=== PATIENT | male | born 1965 | race Caucasian/White ===

== ENCOUNTER 2019-06-26 23:31 | Inpatient (IN) ==
[2019-06-26] MEDS ORDERED: NS 1,000 ML IV ONE (23:48)
[2019-06-27] MEDS ORDERED: OFIRMEV 1000 MG/ISOTONIC SOLN 1,000 MG/100 ML BOTTLE IV ONE (00:13)
[2019-06-27 00:21] LABS: AGAP 14; ALBUMIN 3.4 g/dL (3.5-5.0); ALKALINE PHOSPHATASE 124 U/L (32-122); BUN 9 mg/dL (8-22); CALCIUM 8.8 mg/dL (8.8-10.2); CHLORIDE 98 mmol/L (98-107); CK PROFILE 28 U/L (24-204); COSMO 269; CREATININE 0.7 mg/dL (0.7-1.2); ESTIMATED GFR > 60; GLUCOSE 137 mg/dL (70-104); GOT 32 U/L (10-34); GPT 62 U/L (10-44); POTASSIUM 4.4 mmol/L (3.5-5.1); SODIUM 134 mmol/L (136-145); TCO2 22 mmol/L (25-35)
[2019-06-27 00:37] LABS: INR 1.18; PROTIME 15.6 Seconds (11.0-16.0)
[2019-06-27 00:38] LABS: PTT 36.2 Seconds (22.3-41.8)
[2019-06-27 00:39] LABS: INFLUENZA A NEGATIVE (NEGATIVE); INFLUENZA B NEGATIVE (NEGATIVE)
[2019-06-27 00:39] LABS: HEMATOCRIT 33.7 % (42.0-52.0); HEMOGLOBIN 10.9 g/dL (14.0-18.0); MCH 25.9 PG (27-31); MCHC 32.3 g/dL (33-37); MPV 9.8 FL (7.4-10.4); PLT 386 X1000 (130-400); RBC 4.21 XMIL (4.7-6.1); RDW 16.8 % (11.5-14.5); WBC 15.36 X1000 (4.8-10.8)
[2019-06-27 00:40] LABS: BASO# 0.02 X1000 (0.0-0.2); BASO% 0.1 % (0.0-0.8); EOS# 0.19 X1000 (0.0-0.7); EOS% 1.2 % (0.0-10.0); IMM GRAN# 0.05 X1000 (0.0-0.04); IMM GRAN% 0.3 % (0.0-0.5); LYMPH# 0.26 X1000 (1.2-3.4); LYMPH% 1.7 % (20.5-51.1); MONO# 1.33 X1000 (0.11-0.59); MONO% 8.7 % (1.7-9.3); NEUT# 13.51 X1000 (1.4-6.5)
[2019-06-27 00:41] LABS: ANISOCYTOSIS 2+; EOS 1 % (1-10); LYMPHS 2 % (21-51); MONO 5 % (1-9); POIKILOCYTOSIS 1+; SEGS 92 % (42-75)
[2019-06-27 02:08] LABS: URINE SOURCE CLEAN CATCH
[2019-06-27 02:13] LABS: BILIRUBIN URINE NEGATIVE (NEGATIVE); BLOOD URINE NEGATIVE (NEGATIVE); COLOR YELLOW; GLUCOSE URINE NEGATIVE (NEGATIVE); KETONE URINE NEGATIVE (NEGATIVE); LEUKOCYTES URINE NEGATIVE (NEGATIVE); NITRITE URINE NEGATIVE (NEGATIVE); PROTEIN URINE NEGATIVE (NEGATIVE); SP GRAVITY URINE 1.015; TURBIDITY URINE CLEAR (CLEAR); UROBILINOGEN URINE NORMAL (NORMAL)
[2019-06-27 02:14] LABS: UR EPITHELIAL CELLS <10 /HPF (<10); URINE BACTERIA NEGATIVE /HPF; URINE RBC <10 /HPF (<10); URINE WBC <10 /HPF (<10)
[2019-06-27] MEDS ORDERED: VANCOMYCIN IV PER PHARMACY MISC SCH ×3 (03:00→15:45)
[2019-06-27] MEDS: VANCOMYCIN 1 GM/NS 1 GM/250 ML IVPB IV SCH ×2 (04:00→05:00)
--- NOTE | 2019-06-27 06:46 | Diag Imaging Result Doc PS360 ---
CT THORAX W/CONTRAST - 06/27/2019 INDICATION: fever /suppresion immunity COMPARISON: None FINDINGS: There are numerous relatively large ill-defined hypoenhancing hepatic masses. Liver size is normal. There is a hypoenhancing mass in the pancreatic tail measuring 4.1 x 4.1 cm. This contacts the splenic vein. The spleen size is enlarged measuring 14 x 8.3 cm. There is some patchy dependent atelectasis in both lower lobes and at the left hilum. No significant COPD. No significant infiltrates. No adenopathy in the chest. Heart and great vessels are normal. Bones are intact and well mineralized. There are small calcified gallstones in the gallbladder. No gallbladder distention or inflammation. IMPRESSION: 1. Numerous hepatic masses consistent with metastases. 2. Mass in the pancreatic tail adjacent to the splenic hilum concerning for cancer. 3. Calcified gallstones in the gallbladder. This exam was performed using automated exposure control, adjustment of mA or kV according to patient size, and/or use of iterative reconstruction technique Electronically signed by Alex Poole 06/27/2019 6:43 AM
[2019-06-27] MEDS ORDERED: MAXIPIME 2 GM/NS 2 GM/100 ML IVPB IV ONE (07:43)
[2019-06-27] MEDS ORDERED: ZOFRAN IV PRN ×2 (07:46→15:34)
[2019-06-27] MEDS ORDERED: DEMEROL IV PRN (07:47)
[2019-06-27] MEDS ORDERED: NS 1,000 ML IV SCH (08:00)
--- NOTE | 2019-06-27 08:39 | Diag Imaging Result Doc PS360 ---
CHEST-1 VIEW - 06/26/2019 INDICATION: ABD PAIN/COUGH COMPARISON: 04/27/2016 FINDINGS: The lungs are normally expanded and clear. Heart size and mediastinal contours are normal. No pneumothorax or pleural effusion. IMPRESSION: Negative exam. Electronically signed by Alex Poole 06/27/2019 8:37 AM
[2019-06-27] MEDS ORDERED: TYLENOL PO PRN (12:11)
--- NOTE | 2019-06-27 12:44 | HISTORY AND PHYSICAL ---
PRIMARY CARE PROVIDER: None. Does see Dr. Perla in [place]. CHIEF COMPLAINT: Burning up and shivering. HISTORY OF PRESENT ILLNESS: Mr. Mandujano is a 54-year-old male with a past medical history of hypertension, multiple sclerosis, chronic neck and back pain, recent thyroid issues going on for 1 month after being on Lemtrada medication, CVA in 2016. He reports nausea and vomiting for about a week and a clear productive cough that has been ongoing for 1 month. He denies any abdominal pain, any sick contacts. No chest pain. No shortness of breath. No diarrhea. No constipation. No change in bowel habits. Has not really noticed any weight loss. No night sweats up until now. Workup in the ED showed he had a fever of 102.7. He was tachycardic, tachypneic, with a white count of 15, elevated ANC and negative plasma lactate, negative urinalysis, negative for flu, negative for strep. Chest CT was a negative exam. They did send him for a chest CT that showed numerous hepatic masses consistent with metastasis. The mass in the pancreatic tail adjacent to the splenic hilum concerning for cancer and calcified gallstones in the gallbladder. Blood cultures were obtained. He was initiated on broad- spectrum antibiotics with vancomycin and cefepime and was given IV Tylenol. With a final results of his CT scan, we will more than likely be transferring him over to [facility] for Oncology consult so they can get together a treatment plan. The patient is not up-to-date on any cancer screenings. His last colonoscopy was over 21 years ago. He does not follow up with regular doctor except for specialists in [place]. PAST MEDICAL HISTORY: See HPI. PAST SURGICAL HISTORY: Hernia repair, colonoscopy over 21 years ago. FAMILY HISTORY: Notable for lung and prostate cancer. No heart disease, diabetes, or prior stroke or MS. SOCIAL HISTORY: He continues to smoke about half a pack of cigarettes a day. He did quit alcohol. Prior to this back in 2016, he was 2 to 3 beers a day and a six-pack on the weekends, as the daughter at bedside did verify that he has quit drinking. No illicit drug use. REVIEW OF SYSTEMS: Twelve-point review of systems completely negative except for those mentioned in HPI. PHYSICAL EXAMINATION: VITAL SIGNS: Temperature is 97.8 degrees, heart rate 83, respirations 16, blood pressure 137/74, O2 is 98% on room air. GENERAL: Mr. Mandujano is a 54-year-old gentleman who is lying on the bed, completely covered up from head to toe. He did not awaken to voice; however, he did awaken to touch. He was in no acute distress, completely appropriate once awakened. HEENT: Atraumatic, normocephalic. PERRL. NECK: Supple. Trachea midline. CARDIOVASCULAR: S1, S2 appreciated. No murmurs, gallops, or rubs noted. RESPIRATORY: Lung sounds clear bilaterally. GASTROINTESTINAL: Soft, nontender to palpation in all 4 quadrants. Positive bowel sounds in 4 quadrants. EXTREMITIES: No lower extremity edema. NEUROLOGIC: No focal deficits noted. ASSESSMENT AND PLAN: 1. Nausea and vomiting that has seemed to resolve. 2. Pneumonia seen on CT scan. Elvated WBC, febrile 102, He was placed on broad- spectrum antibiotics. 3. Numerous hepatic masses consistent with metastasis and a mass in the pancreatic tail adjacent to the splenic hilum concerning for cancer. The patient will be transferred to [facility] for Oncology consultation and further workup and evaluation. Pending CT abdomen 4. Recent thyroid issues. Most likely hypothyroid. We will check his TSH, free T4 and T3. He could not tell me what type of issues he was having except it was caused from the medication he was on. He could not tell me if it was hyper or hypo. 5. Multiple sclerosis. We will continue his home medications. 6. Hypertension. 7. Chronic neck and back pain. 8. Cerebrovascular accident history, aware. 9. Tobacco use ongoing will need continued education. 9. Further recommendations to follow physician evaluation, laboratory and diagnostic data. Dictated by EDWIN Cifuentes for Sebastián Brambila MD cc: Sebastián Brambila MD [facility]
--- NOTE | 2019-06-27 14:10 | GENERAL SURGERY CONSULTATION ---
DATE: 06/27/2019 REASON FOR CONSULTATION/REFERRING PHYSICIAN: I have been asked to see him by Dr. Brambila regarding his fever and possible gallbladder disease. HISTORY OF PRESENT ILLNESS: This is a 54-year-old gentleman who has not a very good historian, but reports a 4 to 5-day history of early satiety, poor appetite, and nausea. I think yesterday, he developed fever. He really does not complain of significant abdominal tenderness or pain. Denies any diarrhea. He has a history of MS, and followed by Dr. Perla for that. His workup has included a chest CT showing multiple hepatic metastasis and a mass in the tail of his pancreas. This was all previously undiagnosed. PAST SURGICAL HISTORY: Includes a hernia repair and a colonoscopy in the past. FAMILY HISTORY: Pertinent for lung and prostate cancer. SOCIAL HISTORY: He smokes a pack a day. He denies alcohol use. No illicit drug use. REVIEW OF SYSTEMS: Pertinent for the weakness, the nausea and vomiting, and the fever, otherwise negative on the 10 subsystems. PHYSICAL EXAMINATION: Vital Signs: His temperature is 100.3 degrees, heart rate 95, blood pressure 128/78. Neck: No cervical adenopathy. Lungs: Bilateral breath sounds. Heart: Regular rate and rhythm. Abdomen: Soft. He is mildly tender in the right subcostal region, more laterally than expected for his gallbladder. Extremities: He also points to some pain in his right shoulder area. Neurologic: He does answer questions appropriately. IMAGING AND LABORATORY DATA: White count is noted to be 15,400, hemoglobin 10.9, hematocrit 33, he has a left shift. Alkaline phosphatase 124, total bilirubin 0.8. His CT scan is reviewed. The mets and the pancreatic mass is noted. His gallbladder is not particularly inflamed appearing. He does has some calcified gallstones. ASSESSMENT: This could represent possibly gallbladder disease. I think it would be helpful to get an ultrasound of the gallbladder. We will follow along and recheck his liver enzymes and white count. He may ultimately come to cholecystectomy. I have discussed this with him. cc: Yon Yin MD
--- NOTE | 2019-06-27 14:57 | Diag Imaging Result Doc PS360 ---
CT ABD/PELVIS W/PO AND IV CON - 06/27/2019 INDICATION: weight loss, cachexia, dysphagia COMPARISON: Chest CT from earlier today FINDINGS: There is some mild atelectasis in the lung bases but no infiltrates. There is a suspicious hypoenhancing mass in the pancreatic tail. This measures about 3.7 x 3.4 cm. There are numerous hypoenhancing masses throughout the liver compatible with metastases. The spleen itself appears grossly normal. The gallbladder is completely collapsed and there are probably some small gallstones inside. No biliary dilation. The adrenals and kidneys are normal. No bowel obstruction or inflammation. Urinary bladder, prostate, and rectum are normal. There are moderate degenerative changes of the spine. No acute or suspicious bony lesion. IMPRESSION: Suspicious mass in the pancreatic tail with numerous hepatic metastases. Most likely metastatic pancreatic cancer. This exam was performed using automated exposure control, adjustment of mA or kV according to patient size, and/or use of iterative reconstruction technique Electronically signed by Alex Poole 06/27/2019 2:55 PM
[2019-06-27] MEDS ORDERED: FLAGYL 500 MG/NS 500 MG/100 ML IVPB IV SCH (15:15)
[2019-06-27] MEDS ORDERED: VANCOMYCIN 2,000 MG in NS 500 ML IV SCH ×4 (16:00)
--- NOTE | 2019-06-27 16:32 | EKG Report ---
Test Performed on : 06/26/2019 11:31:06 PM Test Reason : ED Blood Pressure : / mmHG Vent. Rate : 103 BPM Atrial Rate : 103 BPM P-R Int : 154 ms QRS Dur : 090 ms QT Int : 328 ms P-R-T Axes : 017 000 039 degrees QTc Int : 429 ms Sinus tachycardia. Possible Anterior infarct , age undetermined Abnormal ECG When compared with ECG of 27-APR-2016 21:21, Borderline criteria for Anterior infarct are now present ST no longer depressed in Anterior leads T wave inversion now evident in Anterior leads Unconfirmed Result
--- NOTE | 2019-06-27 16:42 | HISTORY AND PHYSICAL ---
ADDENDUM: This is an unfortunate 54-year-old gentleman who came in for evaluation. He had cough, shortness of breath, and fever of 102.2. He was admitted for pneumonia, but the CT showed numerous masses in his liver and likely primary pancreatic mass. I do not think that information was available initially. In any case, he does report a 15 pounds weight loss in the last three months. He has not been eating and drinking well. He has some right upper quadrant abdominal pain intermittently and in any case, he was admitted primarily for pneumonia. CT was read as atelectasis. I think he has got infiltrates. He has got a white count. He has got fever, so I am going to treat him for pneumonia. I do not think his fevers are from the cancer. It is certainly possible but unlikely. He has hyperthyroidism, which has been elaborated by his medication for his MS. In any case, PROBLEM LIST: 1. Pneumonia. We will continue antibiotics, pulmonary toilet. 2. Likely metastatic pancreatic cancer. We sent off tumor markers. I have requested a CT guided liver biopsy. 3. Symptomatic cholelithiasis. I have asked for a General Surgery consult and we will continue to monitor. I think I will add Flagyl to his regimen just in case this is related to his gallbladder for anaerobic coverage, but that is at the discretion of primary team because he may need surgery and it is unlikely that they will complete a biopsy here at the [facility]. We are going to send him to the [facility] for further management. cc: Sebastián Brambila MD
[2019-06-27] MEDS: NS 1,000 ML IV SCH (16:47)
[2019-06-27] MEDS: TAPAZOLE PO SCH ×2 (16:47→20:24)
[2019-06-27] MEDS: FLAGYL 500 MG/NS 500 MG/100 ML IVPB IV SCH ×2 (16:47→22:40)
--- NOTE | 2019-06-27 16:52 | Diag Imaging Result Doc PS360 ---
US GB < RUQ (LIMITED) - 06/27/2019 INDICATION: ruq pain, fever TECHNIQUE: COMPARISON: CT from earlier today FINDINGS: There are numerous small shadowing stones in the gallbladder. These fill over half of the gallbladder lumen. No gallbladder distention or wall thickening. No biliary dilation. There are numerous masses in the liver. Common bile duct measures 2 mm. Pancreatic tail is obscured. The right kidney is normal. Aorta, IVC, and main portal vein are patent. IMPRESSION: 1. Numerous stones in the gallbladder. 2. Numerous masses in the liver. Electronically signed by Alex Poole 06/27/2019 4:50 PM
[2019-06-27] MEDS ORDERED: VANCOMYCIN 1,850 MG in NS 500 ML IV SCH (17:00)
[2019-06-27] MEDS: VANCOMYCIN 1,850 MG in NS 500 ML IV SCH (17:47)
[2019-06-27] MEDS ORDERED: CALMOSEPTINE OINTMENT TOP PRN (18:02)
[2019-06-27] MEDS ORDERED: MAXIPIME 1 GM in NS 50 ML IV SCH (20:00)
[2019-06-27] MEDS: PATIENT'S OWN MED PO SCH (20:29)
[2019-06-27] MEDS: MAXIPIME 1 GM in NS 50 ML IV SCH (23:36)
[2019-06-28] MEDS ORDERED: VANCOMYCIN IV PER PHARMACY MISC SCH (04:00)
[2019-06-28] MEDS: FLAGYL 500 MG/NS 500 MG/100 ML IVPB IV SCH ×3 (04:29→15:11)
[2019-06-28] MEDS: VANCOMYCIN 1,850 MG in NS 500 ML IV SCH ×2 (05:36→18:58)
[2019-06-28] MEDS: PEPCID PO SCH (06:28)
[2019-06-28 07:43] LABS: BASO# 0.03 X1000 (0.0-0.2); BASO% 0.3 % (0.0-0.8); EOS# 0.19 X1000 (0.0-0.7); EOS% 1.8 % (0.0-10.0); HEMATOCRIT 29.9 % (42.0-52.0); HEMOGLOBIN 9.5 g/dL (14.0-18.0); IMM GRAN# 0.03 X1000 (0.0-0.04); IMM GRAN% 0.3 % (0.0-0.5); LYMPH# 0.38 X1000 (1.2-3.4); LYMPH% 3.7 % (20.5-51.1); MCH 25.7 PG (27-31); MCHC 31.8 g/dL (33-37); MCV 80.8 FL (81-99); MONO# 0.88 X1000 (0.11-0.59); MONO% 8.5 % (1.7-9.3); MPV 9.5 FL (7.4-10.4); NEUT# 8.86 X1000 (1.4-6.5); NEUT% 85.4 % (42.2-75.2); PLT 388 X1000 (130-400); RDW 16.7 % (11.5-14.5); WBC 10.37 X1000 (4.8-10.8)
[2019-06-28 08:05] LABS: ANISOCYTOSIS 1+; BANDS 4 % (0-1); EOS 2 % (1-10); HYPOCHROM 1+; LARGE PLATELETS 1+; LYMPHS 2 % (21-51); MONO 4 % (1-9); SEGS 84 % (42-75)
[2019-06-28 08:13] LABS: FREE T4 0.85 ng/dL (0.93-1.70); TSH 1.24 uIUmL (0.27-4.20)
[2019-06-28 08:25] LABS: AGAP 12; ALB/GLOB RATIO 0.8; ALBUMIN 2.8 g/dL (3.5-5.0); ALKALINE PHOSPHATASE 104 U/L (32-122); BUN 8 mg/dL (8-22); CALCIUM 8.6 mg/dL (8.8-10.2); CHLORIDE 98 mmol/L (98-107); COSMO 264; CREATININE 0.8 mg/dL (0.7-1.2); ESTIMATED GFR > 60; GLUCOSE 111 mg/dL (70-104); GOT 22 U/L (10-34); GPT 43 U/L (10-44); POTASSIUM 3.7 mmol/L (3.5-5.1); SODIUM 132 mmol/L (136-145); TCO2 22 mmol/L (25-35); TOTAL BILIRUBIN 0.59 mg/dL (0.20-1.00); TOTAL PROTEIN 6.3 g/dL (6.3-8.3)
--- NOTE | 2019-06-28 10:06 | GENERAL SURGERY PROGRESS NOTE ---
DATE: 06/28/2019 SUBJECTIVE: Mr. Mandujano seems well. His T-max is 100.5 degrees this morning early. Now, he is afebrile. Heart rate 87, blood pressure 131/74. He has taken liquid satisfactorily. His abdomen is not tender. His white count is down to 10,400. I think he is improved with antibiotic therapy. I do think he has cholecystitis. I do think he will come to cholecystectomy, but it is not urgent. We will consider him over the next 2 days for a cholecystectomy if all are in agreement. cc: Yon Yin MD
[2019-06-28 10:30] LABS: HEPATITIS PROFILE ACUTE SEE COMMENTS
[2019-06-28] MEDS: NS 1,000 ML IV SCH ×2 (10:39→15:10)
[2019-06-28] MEDS: FLOMAX PO SCH (10:40)
[2019-06-28] MEDS: TAPAZOLE PO SCH ×3 (10:42→22:22)
[2019-06-28] MEDS: MAXIPIME 1 GM in NS 50 ML IV SCH ×2 (10:42→22:22)
--- NOTE | 2019-06-28 13:21 | PROGRESS NOTE ---
DATE: 06/28/2019 INTERVAL HISTORY: Patient with no further nausea, vomiting. A little bit of nonproductive cough, but no dyspnea. No new complaints. Still some intermittent fevers although they have trended down from admission. REVIEW OF SYSTEMS: Twelve point review of systems negative except as per interval history. LABORATORY DATA: WBC 10.3, hemoglobin 9.5, hematocrit 29.9, platelets 388,000. Sodium 132, potassium 3.7, BUN 8, creatinine 0.8, glucose 111, bilirubin 0.5, AST 22, ALT 43, alkaline phosphatase 104. Urinalysis unremarkable. Flu negative. Strep negative. Hepatitis panel negative. VITAL SIGNS: T-max 100.5 degrees, pulse 82, respirations 14, blood pressure 142/105, O2 saturation 95% on room air. PHYSICAL EXAMINATION: General: No acute distress. Vitals: As above. HEENT: Normocephalic, atraumatic. Moist mucous membranes. Cardiovascular: Regular rate and rhythm. No murmurs noted. Pulmonary: Occasional faint right mid lung crackles. Otherwise clear to auscultation. Abdomen: Soft. No tenderness currently. Negative Barclay sign. Bowel sounds positive. Extremities: Peripheral pulses intact. No clubbing, cyanosis. Neurologic: Cranial nerves grossly intact. No focal deficits. Psychiatric: Normal mood and affect. Asleep but easily arousable. Oriented x3. Cooperative. Skin: No new appearing rashes or lesions noted. No jaundice. ASSESSMENT AND PLAN: 1. Sepsis, likely pneumonia. CT chest read as patchy dependent atelectasis in both lower lobes, but when I reviewed the images it looks pretty consistent with pneumonia to me, especially on transverse images of the chest CT slides 57 and 67, right mid to lower lobe. Suspect pneumonia. On antibiotics with vancomycin and cefepime. Flagyl also added for presumably for concerns for possible cholecystitis. 2. Likely pancreatic cancer with numerous liver metastasis. The patient is relatively asymptomatic at this time. Surgery considering taking his gallbladder out. If they do then they could potentially do liver biopsies at the same time. Otherwise, we will plan on getting Radiology to perform a biopsy likely tomorrow. 3. Hypertension. Blood pressure only minimally elevated off medication. We will plan on continuing to hold medication. 4. Chronic pain. Pain reasonably controlled currently without much requirement for pain medicine but will add additional pain medicine if need be. 5. Nausea, vomiting, resolved. 6. Tobacco abuse. Patient has been counseled on cessation. 7. Multiple sclerosis. Not currently with any flares or notable deficits. [facility]ITAL[facility]ee[facility]
[2019-06-28] MEDS: PATIENT'S OWN MED PO SCH ×2 (14:10→22:23)
[2019-06-29] MEDS: TYLENOL PO PRN ×2 (00:10→19:42)
[2019-06-29] MEDS: NS 1,000 ML IV SCH ×4 (00:46→18:02)
[2019-06-29] MEDS: FLAGYL 500 MG/NS 500 MG/100 ML IVPB IV SCH ×4 (03:06→20:46)
[2019-06-29] MEDS: VANCOMYCIN 1,850 MG in NS 500 ML IV SCH ×2 (05:53→18:02)
[2019-06-29] MEDS: PEPCID PO SCH (06:07)
[2019-06-29] MEDS: PATIENT'S OWN MED PO SCH ×2 (08:09→20:46)
[2019-06-29] MEDS: FLOMAX PO SCH (10:48)
[2019-06-29] MEDS: TAPAZOLE PO SCH ×3 (10:48→20:45)
--- NOTE | 2019-06-29 10:50 | Diag Imaging Result Doc PS360 ---
EXAM: CT GUIDED BX LIVER HISTORY: hepatic mass TECHNIQUE: CT-guided liver biopsy COMPARISON: CT from 06/27/2019 FINDINGS: Prior to the procedure I discussed the risk and benefits with the patient. Primary risks include bleeding, infection, liver injury, and lung injury. Questions were answered. The patient then gave consent. CT was used to localize the subtle hypodense liver lesions on the noncontrasted exam. Lateral right abdomen was cleaned and draped in the normal fashion. Lidocaine was used as a local anesthetic. Needle was advanced into the right lobe of the liver on the first pass without difficulty. Multiple biopsy specimens obtained with a Temno needle. These biopsy specimens were sent to pathology for analysis. The needle was withdrawn. The patient had no complaints during or following the procedure. IMPRESSION: CT-guided liver biopsy. Electronically signed by Bert Whitley 06/29/2019 10:47 AM
[2019-06-29] MEDS: MAXIPIME 1 GM in NS 50 ML IV SCH ×2 (11:54→22:43)
--- NOTE | 2019-06-29 17:33 | PROGRESS NOTE ---
DATE: 06/29/2019 INTERVAL HISTORY: No acute events overnight. He continues to spike fever episodes. SUBJECTIVE: Mr. Mandujano is feeling still weak and not good. He denies any chest pain or shortness of breath. He is occasionally coughing. He denies any nausea, vomiting. He says his liver biopsy went well. I discussed with him about the CT scan findings and suspicion for cancer. He appears depressed to learn it and understanding it. VITAL SIGNS: Temperature of 100 degrees, pulse 87 respiratory rate 16, blood pressure 150/80, saturating 100% on room air. PHYSICAL EXAMINATION: General: Not in acute distress. HEENT: Oral cavity is moist. Lungs: Air entry bilaterally equal. No wheeze, rhonchi, crackles. Cardiovascular: S1, S2 normal. No murmur, rub, or gallop. Abdomen: Soft. Right upper quadrant tenderness. Active bowel sounds. Extremities: No lower extremity edema. Neurologic: He is alert and oriented x3. LABS: There is no CBC or BMP today, for which I have ordered tomorrow. His CA-19-9 antigen is elevated significantly. Hepatitis panel was unremarkable. MICROBIOLOGY: No positive microbiological data, except 1 of the 2 blood cultures which was coagulase-negative Staphylococcus. IMAGING: Liver biopsy was performed today. ASSESSMENT AND PLAN: 1. Sepsis due to bilateral but predominantly right lower lobe pneumonia and presumably from acute versus chronic cholecystitis. Blood culture has remained clear. I will continue him on intravenous vancomycin, intravenous cefepime, and intravenous metronidazole considering he continues to spike fever. His persistent fever could be in the setting of hepatic metastasis. On review of his CT scan, he does have a right lower lobe infiltrate. However, my suspicion is cholecystitis contributing to his current abdominal pain rather than pneumonia. Surgical team on board and I am anticipating cholecystectomy soon. 2. Pancreatic mass with multiple liver lesions suspicious of metastatic pancreatic cancer. He underwent liver biopsy on June 29. Follow up with biopsy report. He will need an Oncology team evaluation. Continue meperidine as needed for abdominal pain. 3. History of multiple sclerosis and Lemtrada induced thyroid dysfunction. I will continue his methimazole. TSH within acceptable range, so thyrotoxicosis contributing to his fever is less likely at the moment. 4. Others. Start patient on enoxaparin for DVT prophylaxis considering suspected pancreatic malignancy; continue tamsulosin for BPH. 5. Disposition. I plan to monitor the patient on medical floor. Plan of care discussed with him. All of his questions have been answered. I am awaiting surgical plan about cholecystectomy before contemplating eventual discharge and outpatient Oncology followup. cc: Tyler Schultz MD
[2019-06-29] MEDS ORDERED: LOVENOX SUBQ SCH (18:00)
--- NOTE | 2019-06-29 19:29 | HEMO/ONC CONSULTATION ---
DATE: 06/29/2019 REQUESTING PHYSICIAN: Hospitalist Service. REASON FOR CONSULTATION: Pancreatic mass and metastatic liver lesion. HISTORY OF PRESENT ILLNESS: Mr. Mandujano is a male who presented to the emergency department complaining of a productive cough. During scanning in regards to his pulmonary issues, he was found to have numerous hepatic masses consistent with metastasis as well as the mass of his pancreatic tail. He is now status post CT-guided liver biopsy. He also has an elevated CA-19-9. PAST MEDICAL HISTORY: 1. Positive for hypertension, multiple sclerosis treated with Lemtrada. 2. Chronic neck and back pain. 3. CVA in 2016. PAST SURGICAL HISTORY: Positive for hernia repair, colonoscopy over 21 years ago. FAMILY HISTORY: Positive for lung and prostate cancer. SOCIAL HISTORY: Patient smokes about a half pack of cigarettes per day. He no longer drinks alcohol, but previously he was a daily beer drinker. He denies any illicit drug use. REVIEW OF SYSTEMS: A 12-point review of systems has been completed and is negative, except for as expressed in the HPI. PHYSICAL EXAMINATION: Vital Signs: Temperature 99.8 degrees, heart rate 85, respirations 18, blood pressure 138/77, O2 saturation 97% on room air. General: male lying in his hospital bed. He is in no acute distress currently. Head: Normocephalic, atraumatic. Eyes: Pupils equal, round, reactive. Ears, nose, throat, neck, and mouth: Oral mucosa appears to be normal. Cardiovascular: S1, S2 heard. Respiratory: Coarse breath sounds with some scant wheezing. Abdomen: Soft with normoactive bowel sounds. Musculoskeletal: No bony abnormalities noted. Extremities: No edema. Neurologic: Patient is alert and oriented. LABORATORY AND STUDIES: There are no new labs for today, but white blood cells at last check were 10.37, hemoglobin 9.5, platelet count 388,000. CT of chest and CT of the abdomen and pelvis as per above, with pancreatic mass as well as numerous hepatic metastatic lesions. ASSESSMENT AND PLAN: 1. Metastatic liver disease with pancreatic mass concerning for metastatic pancreatic cancer. Liver biopsy done earlier today is currently pending. We discussed that we will need to get final pathology back to confirm diagnosis. We can then see him and discuss treatment options. He does not appear to be resectable and the plan would be to proceed with chemotherapy as an outpatient. 2. Sepsis with pneumonia. He will continue his IV antibiotics. Management per the primary team. He seems to be improving slowly. 3. Hypertension. Again, management per the primary team. 4. Chronic pain. Continue current pain management. 5. Multiple sclerosis. This has previously been treated with Lemtrada by Dr. Perla. Thank you for consulting us on Mr. Mandujano. We will continue to follow along and adjust our treatment plan per his hospital course. Dictated by GARRET Hamilton for Diamond Callahan MD cc: Diamond Callahan MD I have seen and examined the patient and the above note reflects my history, physical exam, assessment and plan. Diamond Callahan MD [facility]PITALDeejay
--- NOTE | 2019-06-29 19:54 | GENERAL SURGERY PROGRESS NOTE ---
DATE: 06/29/2019 Mr. Mandujano had a temperature of 100 degrees. Hemodynamics are satisfactory. White count is down to 10,400 yesterday. 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 We will plan to proceed with a laparoscopic cholecystectomy tomorrow the . I have discussed the plan with him. He understands and agrees. cc: Yon Yin MD
[2019-06-29] MEDS: LOVENOX SUBQ SCH (20:45)
[2019-06-30] MEDS: FLAGYL 500 MG/NS 500 MG/100 ML IVPB IV SCH ×4 (03:20→20:27)
[2019-06-30] MEDS: PEPCID PO SCH (06:17)
[2019-06-30] MEDS: VANCOMYCIN 1,850 MG in NS 500 ML IV SCH ×2 (06:18→18:12)
[2019-06-30 07:44] LABS: BASO# 0.02 X1000 (0.0-0.2); BASO% 0.2 % (0.0-0.8); EOS# 0.04 X1000 (0.0-0.7); EOS% 0.4 % (0.0-10.0); HEMATOCRIT 28.2 % (42.0-52.0); IMM GRAN# 0.04 X1000 (0.0-0.04); IMM GRAN% 0.4 % (0.0-0.5); LYMPH# 0.46 X1000 (1.2-3.4); LYMPH% 4.3 % (20.5-51.1); MCH 25.7 PG (27-31); MCHC 31.9 g/dL (33-37); MCV 80.6 FL (81-99); MONO# 0.89 X1000 (0.11-0.59); MONO% 8.3 % (1.7-9.3); MPV 9.4 FL (7.4-10.4); NEUT# 9.24 X1000 (1.4-6.5); NEUT% 86.4 % (42.2-75.2); PLT 372 X1000 (130-400); RDW 16.6 % (11.5-14.5); WBC 10.69 X1000 (4.8-10.8)
[2019-06-30 08:02] LABS: AGAP 13; ALB/GLOB RATIO 0.7; ALBUMIN 2.3 g/dL (3.5-5.0); ALKALINE PHOSPHATASE 93 U/L (32-122); BUN 6 mg/dL (8-22); CHLORIDE 99 mmol/L (98-107); COSMO 265; CREATININE 0.7 mg/dL (0.7-1.2); ESTIMATED GFR > 60; GLUCOSE 113 mg/dL (70-104); GOT 20 U/L (10-34); GPT 33 U/L (10-44); POTASSIUM 3.6 mmol/L (3.5-5.1); SODIUM 133 mmol/L (136-145); TCO2 21 mmol/L (25-35); TOTAL BILIRUBIN 0.62 mg/dL (0.20-1.00); TOTAL PROTEIN 5.7 g/dL (6.3-8.3)
[2019-06-30] MEDS: TAPAZOLE PO SCH ×3 (09:45→20:29)
[2019-06-30] MEDS: FLOMAX PO SCH (09:45)
[2019-06-30] MEDS ORDERED: SENSORCAINE-MPF 0.5%/EPI 1:200,000 ONE (11:04)
[2019-06-30] MEDS ORDERED: SODIUM CHLORIDE 0.9% ONE (11:04)
[2019-06-30] MEDS ORDERED: LR 1,000 ML ONE (11:04)
[2019-06-30] MEDS ORDERED: ZEMURON ONE (11:35)
[2019-06-30] MEDS ORDERED: XYLOCAINE-MPF 2% ONE ×2 (11:35→15:47)
[2019-06-30] MEDS ORDERED: DIPRIVAN 1% ONE ×3 (11:35→15:56)
--- NOTE | 2019-06-30 12:41 | OPERATIVE NOTE ---
PROCEDURE DATE: 06/30/2019 PROCEDURE PERFORMED: Laparoscopic cholecystectomy with operative cholangiogram and biopsy of the right lobe of the liver. SURGEON: Yon Yin MD. STUDENT LOAN COUNSELOR: Hu Weems PREOPERATIVE DIAGNOSIS: Chronic calculous cholecystitis and liver metastases. POSTOPERATIVE DIAGNOSIS: Chronic calculous cholecystitis and liver metastases with choledocholithiasis. FINDINGS: Cholangiogram revealed numerous stones within the common bile duct, and also there were numerous metastases noted in the liver, both lobes. DESCRIPTION OF PROCEDURE: Satisfactory general endotracheal anesthesia was achieved. Abdomen is prepped and draped in a sterile fashion. We anesthetized skin at the base of the umbilicus, incised the skin, dissected down the fascia, scored the fascia, introduced 11 trocar Optiview technique. We insufflated through this trocar. Under direct visualization, we introduced a 5 trocar midclavicular line, a 5 trocar near the anterior axillary line, an 11 mm trocar in the midepigastrium. We placed the patient in reverse Trendelenburg and turned him to the left. We identified some multiple metastases within the liver. We also identified some old clot in the anterior abdominal wall with the needle biopsy had been done. There was no bleeding from the liver spot where the needle had entered the liver. We grasped the fundus of the gallbladder, reflected it cephalad. We began dissection of the triangle of Calot. We identified the cystic duct. We obtained a critical view. We clipped the cystic duct near the junction of the gallbladder, incised the cystic duct. We introduced a Agnes catheter, shot the cholangiogram. The findings above were noted. We removed the cholangiogram catheter, clipped the cystic duct on the opposite side of the cystic ductotomy x3 and then transected the cystic duct. Cystic artery is identified, clipped proximally x2, distally x1, and divided. Another branch was clipped proximally x2 and divided. We then used the cautery spatula to dissect the gallbladder away from the liver. After complete separation of gallbladder from liver, we changed the videolaparoscope to the mid epigastric trocar, introduced a claw forceps and delivered the gallbladder through the subumbilical incision. We enlarged the fascial incision enough to deliver the gallbladder. We replaced the 11 trocar at the umbilicus. We looked back and identified what appeared to be a metastasis at the edge of the right lobe of the liver. We did a biopsy of it with the biopsy forceps. Hemostasis was satisfactory. We then used a Nelson-Adilson wound closure for the epigastric trocar site. We desufflated and removed our other trocars. We closed the fascia at the umbilicus with 2-0 Polysorb fascial stitches under direct visualization. We then closed the skin at each incision with 4-0 Polysorb subcuticular stitches. Sterile OpSites were applied. He tolerated it well and was sent to the recovery room in satisfactory condition. cc: Yon Yin MD
[2019-06-30] MEDS: PATIENT'S OWN MED PO SCH ×2 (13:23→20:30)
[2019-06-30] MEDS: MAXIPIME 1 GM in NS 50 ML IV SCH (13:44)
--- NOTE | 2019-06-30 14:43 | Diag Imaging Result Doc PS360 ---
OPERATIVE CHOLANGIOGRAM - 06/30/2019 INDICATION: CHRONIC CHOLECYSTITIS TECHNIQUE: The exam was performed by the patient's surgeon. Total fluoroscopy time was 31 seconds. Two images were obtained. COMPARISON: None FINDINGS: Contrast was infused into the cystic duct. The common bile duct is moderately dilated. There are numerous obstructing stones in the mid and distal common bile duct. IMPRESSION: Numerous obstructing stones in the common bile duct. Electronically signed by Alex Poole 06/30/2019 2:41 PM
[2019-06-30] MEDS ORDERED: ROBINUL ONE (15:47)
[2019-06-30] MEDS ORDERED: NEO-SYNEPHRINE ONE (15:53)
[2019-06-30] MEDS ORDERED: SODIUM CHLORIDE 0.9% 0 ML ONE (15:53)
[2019-06-30] MEDS ORDERED: FENTANYL ONE (16:23)
[2019-06-30] MEDS ORDERED: INDOCIN ONE (17:01)
[2019-06-30] MEDS ORDERED: ZOFRAN ONE (17:14)
--- NOTE | 2019-06-30 17:42 | ENDOSCOPY OPERATIVE NOTE ---
[facility] ENDOSCOPY OPERATIVE NOTE , ERCP PROCEDURE REPORT EXAM DATE: 06/30/2019 PATIENT NAME: Lacho Mandujano MR #: [id number] BIRTHDATE: 1965 ATTENDING: Adebayo Vo MD STATUS: inpatient [employer] SALES MANAGER: Earline Miguel and Luda Farah INDICATIONS: The patient is a 54 yr old male here for an ERCP due to established bile duct stone(s). PROCEDURE PERFORMED: ERCP with sphincterotomy/papillotomy ERCP with removal of calculus/calculi MEDICATIONS: Per Anesthesia CONSENT: The patient understands the risks and benefits of the procedure and understands that these r isks include, but are not limited to: sedation, allergic reaction, infection, perforation and/or bleeding. Alternative means of evaluation and treatment include, among others: physical exam, x-rays, and/or surgical intervention. The patient elects to proceed with this endoscopic procedure. HISTORY AND PHYSICAL: 06/30/2019 DESCRIPTION OF PROCEDURE: During intra-op preparation period all mechanical and medical equipment was checked for proper function. Hand hygiene and appropriate measures for infection prevention was taken. After the risks, benefits and alternatives of the procedure were thoroughly explained, Informed was verified, confirmed and timeout was successfully executed by the treatment team. With the patient in left semi-prone position, medications were admini stered intravenously.The [id number] ([id number]) was passed from the mouth into the esophagus and further advanc ed from the esophagus into the stomach. From stomach scope was directed to the second portion of the duodenum. M ajor papilla was aligned with the duodenoscope. The scope position was confirmed fluoroscopically. Rest of the finding s/therapeutics are given below. The scope was then completely withdrawn from the patient and the procedure completed. Th e pulse, BP, and O2 saturation were monitored and documented by the physician and the nursing staff throughout the ent fly procedure. The patient was cared for as planned according to standard protocol. The patient was then discharged to [facility] in stable condition and with appropriate post procedure care. ERCP: A pan shaker film prior to endoscope insertion appeared normal. The Major Papilla was located in t he second portion of the duodenum. The major papilla appeared normal. Bile duct cannulation was attempted using the sphincterotome with guidewire. Cannulation of the bile duct was performed with ease. Deep cannulation was successf ully achieved. Contrast injection was performed. The cholangiogram revealed multiple stones in the common bile amaya t up to 8mm and common bile duct. With guidewire within the bile duct, a biliary sphincterotomy was performed. A stone extraction was attempted using a stone extraction balloon. The bile duct was swept several times. Multiple sto dino were removed from the bile duct. ADVERSE EVENT: There were no complications. IMPRESSIONS: Common bile duct stone(s) RECOMMENDATIONS: 1. Start Full liquid diet for 1 Day(s) 2. Disposition 3. Return to floor when standard parameters are met REPEAT EXAM: Adebayo Vo MD eSigned: Adebayo Vo MD 06/30/2019 5:41 PM cc: Yon Yin MD PATIENT NAME: Lacho Mandujano MR#: [id number]
--- NOTE | 2019-06-30 17:42 | PROGRESS NOTE ---
DATE: 06/30/2019 SUBJECTIVE: The patient reports feeling fine. Abdominal pain is under control. No other issues noted as per nursing staff overnight. He continues to have mild grade fever, 100.0 was the maximum during the last 24 hours. OBJECTIVE: Vital Signs: Temperature 98.3 degrees, heart rate 81, respiratory rate 23, blood pressure 120/71, O2 saturation 93% on 2 L nasal cannula. General: This is a 54-year-old male, lying in bed, in no acute distress. Chronically ill-looking. Cardiovascular: S1, S2 heard. No murmurs, gallops, or rubs. Regular rate and rhythm. Respiratory: Clear bilaterally to auscultation. No work of breathing or using accessory muscles. Abdomen: Soft, nontender to palpation. Bowel sounds present. No organomegaly. Extremities: Clear bilaterally to auscultation. No work of breathing or using accessory muscles. Abdomen: Soft. Right upper quadrant tenderness to palpation. No signs of peritoneal irritation. Bowel sounds present. No organomegaly. Extremities: No clubbing, cyanosis, or edema. Peripheral pulses present in both legs. Neurological: Patient alert oriented x3. Moves four extremities. LABORATORY DATA: Reviewed and liver function tests are okay. ASSESSMENT/PLAN: 1. Sepsis due to right lower lobe pneumonia and acute cholecystitis. The patient has had laparoscopic cholecystectomy today. That was performed by Dr. iYn. Operative cholangiogram showed numerous obstructing stones in the common bile duct. At this point, we will continue with current antibiotic management. In this case, vancomycin, cefepime and metronidazole. 2. Pancreatic mass with multiple liver lesions suspicious of metastatic pancreatic cancer. The patient had a liver biopsy on the . Oncology has been consulted and they mentioned that they will start chemotherapy as an outpatient. 3. Choledocholithiasis. Dr. Vo from Gastroenterology is going to do an endoscopic retrograde cholangiopancreatography on this patient. 4. Multiple sclerosis. We will continue home medications. 5. Deep vein thrombosis prophylaxis. Patient is on Lovenox. 6. Benign prostatic hypertrophy. We will continue with tamsulosin. 7. Disposition. We will continue to monitor this patient closely. We will send this patient home once everything is okay from all of the specialties. cc: Tenzin Dempsey MD
--- NOTE | 2019-06-30 17:53 | Diag Imaging Result Doc PS360 ---
ERCP-BILIARY AND PANCREATIC - 06/30/2019 INDICATION: Chlodocolithiasis TECHNIQUE: The exam was performed of the patient's surgeon. Total fluoroscopy time was 5.3 minutes. Four images were obtained. COMPARISON: Cholangiogram from earlier today FINDINGS: The stones were successfully extracted from the common bile duct. IMPRESSION: Successful extraction of stones from the common bile duct. Electronically signed by Alex Poole 06/30/2019 5:51 PM
[2019-06-30] MEDS: NS 1,000 ML IV SCH (20:26)
[2019-06-30] MEDS: LOVENOX SUBQ SCH (20:30)
[2019-07-01] MEDS: MAXIPIME 1 GM in NS 50 ML IV SCH ×2 (01:38→13:32)
[2019-07-01] MEDS: FLAGYL 500 MG/NS 500 MG/100 ML IVPB IV SCH ×4 (02:42→21:37)
[2019-07-01] MEDS: VANCOMYCIN 1,850 MG in NS 500 ML IV SCH (06:26)
[2019-07-01] MEDS: PEPCID PO SCH (06:26)
[2019-07-01 08:03] LABS: HEMATOCRIT 28.9 % (42.0-52.0); HEMOGLOBIN 9.2 g/dL (14.0-18.0); IMM GRAN# 0.03 X1000 (0.0-0.04); IMM GRAN% 0.4 % (0.0-0.5); LYMPH# 0.18 X1000 (1.2-3.4); LYMPH% 2.4 % (20.5-51.1); MCH 25.4 PG (27-31); MCHC 31.8 g/dL (33-37); MCV 79.8 FL (81-99); MONO# 0.34 X1000 (0.11-0.59); MONO% 4.6 % (1.7-9.3); MPV 9.7 FL (7.4-10.4); NEUT# 6.87 X1000 (1.4-6.5); NEUT% 92.6 % (42.2-75.2); PLT 418 X1000 (130-400); RBC 3.62 XMIL (4.7-6.1); RDW 16.4 % (11.5-14.5); WBC 7.42 X1000 (4.8-10.8)
[2019-07-01 08:31] LABS: AGAP 12; ALB/GLOB RATIO 0.6; ALBUMIN 2.2 g/dL (3.5-5.0); ALKALINE PHOSPHATASE 89 U/L (32-122); BUN 11 mg/dL (8-22); CALCIUM 8.3 mg/dL (8.8-10.2); CHLORIDE 104 mmol/L (98-107); COSMO 275; CREATININE 0.6 mg/dL (0.7-1.2); ESTIMATED GFR > 60; GLUCOSE 131 mg/dL (70-104); GOT 22 U/L (10-34); GPT 34 U/L (10-44); POTASSIUM 4.2 mmol/L (3.5-5.1); SODIUM 137 mmol/L (136-145); TCO2 21 mmol/L (25-35); TOTAL BILIRUBIN 0.32 mg/dL (0.20-1.00); TOTAL PROTEIN 5.8 g/dL (6.3-8.3)
[2019-07-01 08:40] LABS: LYMPHS 3 % (21-51); MONO 5 % (1-9); SEGS 92 % (42-75)
[2019-07-01 08:41] LABS: ANISOCYTOSIS 2+; HYPOCHROM 3+; LARGE PLATELETS OCCASIONAL; MICROCYTOSIS 2+; POLYCHROM 1+
--- NOTE | 2019-07-01 08:54 | GENERAL SURGERY PROGRESS NOTE ---
DATE: 07/01/2019 SUBJECTIVE: Patient seems to be doing okay. OBJECTIVE: Vital Signs: Patient is currently afebrile. His vital signs are stable. General: No acute distress. Cardiovascular: Regular rate and rhythm. Lungs: Grossly clear. Abdomen: Soft, appropriately tender. ASSESSMENT AND PLAN: A 54-year-old gentleman status post laparoscopic cholecystectomy, was found to have a liver mass with hepatic metastases. Postop state. At this time, he is doing okay. He did have an ERCP where they had several stones removed. He is not having any significant abdominal pain at this point. We will continue to follow while he is in the hospital. cc: Prabhu Mccullough MD
[2019-07-01] MEDS: TAPAZOLE PO SCH ×3 (09:25→21:38)
[2019-07-01] MEDS: FLOMAX PO SCH (09:25)
[2019-07-01] MEDS: PATIENT'S OWN MED PO SCH ×2 (09:26→21:38)
[2019-07-01] MEDS: NS 1,000 ML IV SCH (09:35)
--- NOTE | 2019-07-01 12:12 | PROGRESS NOTE ---
DATE: 07/01/2019 SUBJECTIVE: The patient reports feeling okay. Abdominal pain is under control. Not having any more episodes of fever. OBJECTIVE: Vital Signs: Temperature 97.3 degrees, heart rate 60, respiratory rate 18, blood pressure 130/71, O2 saturation 96% on room air. General Examination: This is a chronically ill- appearing, 54-year-old male, lying in bed in no acute distress. Cardiovascular exam: S1, S2 heard. No murmurs, gallops, or rubs. Regular rate and rhythm. Respiratory exam: Clear bilaterally to auscultation. No work of breathing or using accessory muscles. Abdomen: Soft, nontender to palpation. Bowel sounds present. No organomegaly. Extremities: No clubbing, cyanosis, or edema. Peripheral pulses present in both legs. Neurological examination: Patient alert and oriented x3. Moves 4 extremities. LABORATORY DATA: Reviewed. ASSESSMENT AND PLAN: 1. Sepsis due to right lower lobe pneumonia and acute cholecystitis. Regarding pneumonia, the patient is doing fine. Not requiring any oxygen supplementation. Not having any cough and not spiking any fever. The patient has undergone laparoscopic cholecystectomy as per Dr. Yin. We will continue with current antibiotic management; in this case, vancomycin, cefepime and metronidazole. 2. Pancreatic mass with multiple liver lesions suspicious for metastatic pancreatic cancer. Oncology will start chemotherapy as an outpatient. 3. Choledocholithiasis, status post endoscopic retrograde cholangiopancreatography. Dr. Vo has removed many stones from common bile duct. We will continue to monitor. 4. Multiple sclerosis. We will continue home medications. 5. Deep venous thrombosis prophylaxis. Patient on Lovenox. 6. Benign prostatic hypertrophy. We will continue with Zosyn. 7. Disposition: At this point, I will keep this patient over the weekend. Optimizing pain control medications and continue with antibiotics for pneumonia. I am thinking if on Wednesday patient is feeling okay, we will discharge him home. cc: Tenzin Dempsey MD
[2019-07-01] MEDS ORDERED: VANCOMYCIN 1,500 MG in NS 250 ML IV SCH (20:00)
[2019-07-01] MEDS: LOVENOX SUBQ SCH (21:36)
[2019-07-01] MEDS: VANCOMYCIN 1,500 MG in NS 250 ML IV SCH (21:37)
[2019-07-02] MEDS: MAXIPIME 1 GM in NS 50 ML IV SCH ×2 (01:30→13:22)
[2019-07-02] MEDS: FLAGYL 500 MG/NS 500 MG/100 ML IVPB IV SCH ×4 (02:34→21:32)
[2019-07-02] MEDS: TYLENOL PO PRN ×3 (04:19→16:40)
[2019-07-02] MEDS: NS 1,000 ML IV SCH (05:09)
[2019-07-02] MEDS: PEPCID PO SCH (06:27)
[2019-07-02 08:04] LABS: EOS# 0.01 X1000 (0.0-0.7); EOS% 0.1 % (0.0-10.0); HEMATOCRIT 30.1 % (42.0-52.0); HEMOGLOBIN 9.6 g/dL (14.0-18.0); IMM GRAN# 0.04 X1000 (0.0-0.04); IMM GRAN% 0.4 % (0.0-0.5); LYMPH# 0.54 X1000 (1.2-3.4); LYMPH% 4.8 % (20.5-51.1); MCH 25.5 PG (27-31); MCHC 31.9 g/dL (33-37); MCV 80.1 FL (81-99); MONO# 0.83 X1000 (0.11-0.59); MONO% 7.4 % (1.7-9.3); MPV 9.4 FL (7.4-10.4); NEUT# 9.85 X1000 (1.4-6.5); NEUT% 87.3 % (42.2-75.2); PLT 441 X1000 (130-400); RBC 3.76 XMIL (4.7-6.1); WBC 11.27 X1000 (4.8-10.8)
[2019-07-02 08:25] LABS: AGAP 12; ALB/GLOB RATIO 0.7; ALBUMIN 2.1 g/dL (3.5-5.0); ALKALINE PHOSPHATASE 86 U/L (32-122); BUN 10 mg/dL (8-22); CALCIUM 7.9 mg/dL (8.8-10.2); CHLORIDE 105 mmol/L (98-107); COSMO 278; CREATININE 0.9 mg/dL (0.7-1.2); ESTIMATED GFR > 60; GLUCOSE 115 mg/dL (70-104); GOT 18 U/L (10-34); GPT 29 U/L (10-44); POTASSIUM 3.5 mmol/L (3.5-5.1); SODIUM 139 mmol/L (136-145); TCO2 22 mmol/L (25-35); TOTAL BILIRUBIN 0.17 mg/dL (0.20-1.00); TOTAL PROTEIN 5.2 g/dL (6.3-8.3)
[2019-07-02 08:45] LABS: LYMPHS 5 % (21-51); MONO 7 % (1-9); SEGS 88 % (42-75)
[2019-07-02 08:46] LABS: ANISOCYTOSIS 2+; HYPOCHROM 2+; MICROCYTOSIS 2+
[2019-07-02] MEDS: VANCOMYCIN 1,500 MG in NS 250 ML IV SCH (09:47)
[2019-07-02] MEDS: FLOMAX PO SCH (09:48)
[2019-07-02] MEDS: TAPAZOLE PO SCH ×3 (09:48→21:37)
[2019-07-02] MEDS: PATIENT'S OWN MED PO SCH ×2 (09:48→22:06)
[2019-07-02] MEDS: DEMEROL IV PRN ×2 (13:23→21:35)
--- NOTE | 2019-07-02 15:48 | PROGRESS NOTE ---
DATE: 07/02/2019 SUBJECTIVE: The patient reports feeling fine. Abdominal pain is under control with oral medication. No more episodes of fever. OBJECTIVE: Vital Signs: Temperature 97.5 degrees, heart rate 82, respiratory rate 20, blood pressure 132/79. O2 saturation 99% on room air. Temperature maximum 101.2 on today at 4:12, actually the only reading above 100 that we have checked during the last 4 days. General: This is a chronically ill-appearing, 54-year-old male, lying in bed, in no acute distress. Cardiovascular: S1, S2 heard. No murmurs, gallops, or rubs. Regular rate and rhythm. Respiratory: Clear bilaterally to auscultation. No work of breathing or using accessory muscles. Abdomen: Soft, nontender to palpation. Bowel sounds present. No organomegaly. Extremities: No clubbing, cyanosis, or edema. Peripheral pulses present in both legs. Neurological: Patient is alert and oriented x3. Moves 4 extremities. LABORATORY DATA: Reviewed. ASSESSMENT AND PLAN: 1. Sepsis due to right lower lobe pneumonia and acute cholecystitis. The patient is postop from laparoscopic cholecystectomy. The patient continues to be on vancomycin, cefepime, and metronidazole for right lower lobe pneumonia. He has spiked 1 fever, so at this point, we will continue to monitor this patient 1 more day here in the hospital. From surgical standpoint, the patient is doing good. 2. Pancreatic mass with multiple liver lesions suspicious for metastatic pancreatic cancer. From oncology standpoint, he is going to receive chemotherapy as an outpatient. 3. Choledocholithiasis status post ERCP. The patient is stable. Liver function tests are okay. We will continue to monitor. 4. Multiple sclerosis. We will continue home medications. 5. Deep vein thrombosis prophylaxis. Patient on Lovenox. 6. Benign prostatic hypertrophy. We will continue with Zosyn. 7. Disposition. At this point, because of this 1 episode of fever, we are planning to observe him one more day. If everything is okay and cleared from General Surgery, the patient will be discharged tomorrow. cc: Tenzin Dempsey MD
[2019-07-02] MEDS ORDERED: TYLENOL PO ONE (16:23)
--- NOTE | 2019-07-02 16:37 | Diag Imaging Result Doc PS360 ---
CHEST-PORTABLE - 07/02/2019 INDICATION: fever COMPARISON: 06/27/2019 FINDINGS: There are some new infiltrates in both lung bases, right greater than left. Heart size is normal. IMPRESSION: New indeterminate infiltrates in the lung bases. This may represent bronchopneumonia. Electronically signed by Alex Poole 07/02/2019 4:35 PM
[2019-07-02] MEDS: LOVENOX SUBQ SCH (21:38)
[2019-07-02] MEDS: VANCOMYCIN 1,750 MG in NS 250 ML IV SCH (22:40)
[2019-07-03] MEDS: NS 1,000 ML IV SCH (01:29)
[2019-07-03] MEDS: MAXIPIME 1 GM in NS 50 ML IV SCH (01:29)
[2019-07-03] MEDS: FLAGYL 500 MG/NS 500 MG/100 ML IVPB IV SCH ×2 (02:41→09:40)
[2019-07-03] MEDS: TYLENOL PO PRN ×2 (03:52→11:41)
[2019-07-03] MEDS: PEPCID PO SCH (06:33)
[2019-07-03 07:36] LABS: BASO# 0.01 X1000 (0.0-0.2); BASO% 0.1 % (0.0-0.8); EOS# 0.04 X1000 (0.0-0.7); EOS% 0.3 % (0.0-10.0); HEMATOCRIT 30.3 % (42.0-52.0); HEMOGLOBIN 9.6 g/dL (14.0-18.0); IMM GRAN# 0.08 X1000 (0.0-0.04); IMM GRAN% 0.5 % (0.0-0.5); LYMPH# 0.29 X1000 (1.2-3.4); LYMPH% 1.8 % (20.5-51.1); MCH 25.6 PG (27-31); MCHC 31.7 g/dL (33-37); MCV 80.8 FL (81-99); MONO# 1.24 X1000 (0.11-0.59); MONO% 7.8 % (1.7-9.3); MPV 9.7 FL (7.4-10.4); NEUT# 14.19 X1000 (1.4-6.5); NEUT% 89.5 % (42.2-75.2); PLT 397 X1000 (130-400); RBC 3.75 XMIL (4.7-6.1); RDW 17.1 % (11.5-14.5); WBC 15.85 X1000 (4.8-10.8)
[2019-07-03 07:49] LABS: AGAP 12; ALB/GLOB RATIO 0.7; ALBUMIN 2.3 g/dL (3.5-5.0); ALKALINE PHOSPHATASE 109 U/L (32-122); BUN 8 mg/dL (8-22); CALCIUM 7.8 mg/dL (8.8-10.2); CHLORIDE 103 mmol/L (98-107); COSMO 276; CREATININE 0.9 mg/dL (0.7-1.2); ESTIMATED GFR > 60; GLUCOSE 136 mg/dL (70-104); GOT 20 U/L (10-34); GPT 28 U/L (10-44); POTASSIUM 3.2 mmol/L (3.5-5.1); SODIUM 138 mmol/L (136-145); TCO2 23 mmol/L (25-35); TOTAL BILIRUBIN 0.42 mg/dL (0.20-1.00); TOTAL PROTEIN 5.5 g/dL (6.3-8.3)
[2019-07-03] MEDS: VANCOMYCIN 1,750 MG in NS 250 ML IV SCH (09:39)
[2019-07-03] MEDS: PATIENT'S OWN MED PO SCH ×2 (09:40→21:56)
[2019-07-03] MEDS: TAPAZOLE PO SCH ×3 (09:41→21:53)
[2019-07-03] MEDS: FLOMAX PO SCH (09:41)
[2019-07-03] MEDS ORDERED: DILAUDID IV PRN (10:43)
[2019-07-03] MEDS: MERREM 1 GM in NS 50 ML IV SCH ×2 (11:34→18:18)
[2019-07-03] MEDS: ZYVOX 600 MG/D5W 600 MG/300 ML IVPB IV SCH (11:34)
--- NOTE | 2019-07-03 13:02 | PROGRESS NOTE ---
DATE: 07/03/2019 SUBJECTIVE: This the patient has been spiking fevers for last 2 days. X-ray this morning shows new infiltrate. Abdominal pain is under control. OBJECTIVE: Vital Signs: Temperature 98.4 degrees, heart rate 96, respiratory rate 24, blood pressure 132/74. O2 saturation 98% on room air. General Examination: A chronically ill appearing, 54-year-old, male, lying in bed, in no acute distress. Cardiovascular: S1, S2 heard. No murmurs, gallops, or rubs. Regular rate and rhythm. Respiratory: Minimal coarse breath sounds noted in both pulmonary bases. Patient is not using any accessory muscles or having work of breathing. Abdomen: Soft, nontender to palpation. Bowel sounds present. No organomegaly. Extremities: No clubbing, cyanosis, or edema. Peripheral pulses present in both legs. Neurological: Patient alert and oriented x3. Moves 4 extremities. LABORATORY DATA: Reviewed. ASSESSMENT AND PLAN: 1. Sepsis due to right lower lobe pneumonia and acute cholecystitis. The patient has been on vancomycin, cefepime and metronidazole. He started spiking fever today even on those medications so at this point, I think this patient has developed a new episodes of pneumonia so we will change antibiotics to Zyvox and meropenem. We will monitor this patient closely for at least couple days and if fever has subsides then we can send this patient out of the hospital if okay with General Surgery. 2. Pancreatic mass with multiple liver lesions suspicious for metastatic pancreatic cancer. The patient has underwent a liver biopsy. From Oncology standpoint, patient will receive chemotherapy as an outpatient. 3. Choledocholithiasis status post ERCP. Patient is stable and function is okay. We will continue to monitor. 4. Multiple sclerosis. We will continue home medication. 5. Benign prostatic hypertrophy. We will continue with tamsulosin. 6. Disposition. At this point, as we mentioned before, we will change antibiotics. We will keep him on both for at least a couple of days. We will see how this patient does. cc: Tenzin Dempsey MD
--- NOTE | 2019-07-03 14:21 | GASTROENTEROLOGY PROGRESS NOTE ---
DATE: 07/03/2019 SUBJECTIVE: At the time of my visit, the patient was shaking with chills. He had spiked a fever yesterday. Per vital sign report, he had fever up to 103 during the middle of the night. He has had his antibiotics changed since then. Patient had ERCP on 06/30/2019; findings of common bile duct stones. Sphincterotomy was performed. No stent was placed. OBJECTIVE: Vital Signs: Temperature 98.4 degrees, pulse 96, respirations 24, blood pressure 132/74. Patient had documented temperature of 103 degrees at 03:38 hours last night, and 101.2 on 07/02/2019 in the afternoon. His antibiotics have been changed. LABORATORY: Hematology: WBC 15.85, hemoglobin 9.6, hematocrit 30.3, MCV 80.8, platelets 397. Chemistry: Sodium 138, potassium 3.2, chloride 103, CO2 of 23. BUN 8, creatinine 0.9, glucose 136, calcium 7.8, total bilirubin 0.42. AST 20, ALT 28, alkaline phosphatase 109. Pathology from liver biopsy during cholecystectomy showed metastatic adenocarcinoma with final diagnosis pending immunohistologic chemical stains waiting on final results. Patient has been seen by Dr. Diamond Callahan. ASSESSMENT AND PLAN: 1. Pneumonia. Patient's antibiotics have been changed. 2. Recent acute cholecystitis, status post cholecystectomy and choledocholithiasis status post endoscopic retrograde cholangiopancreatography with sphincterotomy and stone removals. 3. Pancreatic mass with multiple liver lesions. Preliminary pathology showing metastatic adenocarcinoma. Patient has been seen by Dr. Diamond Callahan. 4. His liver function tests are normal. Patient is status post endoscopic retrograde cholangiopancreatography, stone extraction and sphincterotomy. We will continue to follow during this hospital course. Recommend following with Dr. Diamond Callahan regarding recommendations once full pathology is back. Further plans will be made as needed. I have discussed this case with Dr. Vo. Dictated by EDWIN Vasquez for Adebayo Vo MD cc: EDWIN Han MD [facility]
--- NOTE | 2019-07-03 19:20 | HEMO/ONC PROGRESS NOTE ---
DATE: 07/03/2019 HISTORY OF PRESENT ILLNESS: Mr. Mandujano is resting soundly in the hospital room, status post cholecystectomy and ERCP with sphincterotomy and stone removal. He had fevers overnight and has been placed on antibiotics. He is resting comfortably at the time of consultation. PHYSICAL EXAMINATION: Vital signs: Temperature 98.4, T-max at 3 a.m. was 103, pulse 96, blood pressure 132/74, respiratory rate 24, O2 saturation 98% on room air. General: This is a chronically ill-appearing man in no acute distress. He is unaccompanied at the time of consultation. Eyes: Sclerae anicteric. Cardiovascular: Regular rate and rhythm. Normal S1, S2. No murmurs, rubs, or gallops. Pulmonary: Lungs are clear to auscultation bilaterally without wheezes, rales, or rhonchi. Gastrointestinal: Abdomen is soft, mildly tender, but nondistended with bandage in place. Rest of examination is unremarkable. LABS: White count 15.85, hemoglobin 9.6, platelet count 397,000, potassium 3.2, total bilirubin 0.42, creatinine 0.9, calcium 7.8. ASSESSMENT AND PLAN: 1. Pancreatic mass with multiple liver lesions consistent with metastatic adenocarcinoma: I have discussed the palliative intent of treatment in the setting of metastatic pancreatic cancer. He is interested in palliative treatment, but will need some recovery time from his recent procedures. I will see him back in the clinic for further evaluation. CA-19-9 was elevated at 239 to be followed throughout the course of his treatment. 2. Cholecystitis: Status post cholecystectomy and endoscopic retrograde cholangiopancreatography. Continue to monitor. 3. Fever: New problem. He had a fever overnight and has now been placed on Zyvox and meropenem. Continue same. Continue to monitor. cc: Diamond Callahan MD
[2019-07-03] MEDS: LOVENOX SUBQ SCH (21:52)
[2019-07-04] MEDS: ZYVOX 600 MG/D5W 600 MG/300 ML IVPB IV SCH ×2 (00:44→16:34)
[2019-07-04] MEDS: NS 1,000 ML IV SCH (00:44)
[2019-07-04] MEDS: MERREM 1 GM in NS 50 ML IV SCH ×3 (03:08→19:30)
[2019-07-04] MEDS: PEPCID PO SCH (06:59)
[2019-07-04 07:37] LABS: BASO# 0.02 X1000 (0.0-0.2); BASO% 0.1 % (0.0-0.8); EOS# 0.02 X1000 (0.0-0.7); EOS% 0.1 % (0.0-10.0); HEMATOCRIT 30.8 % (42.0-52.0); HEMOGLOBIN 9.8 g/dL (14.0-18.0); IMM GRAN# 0.17 X1000 (0.0-0.04); IMM GRAN% 0.7 % (0.0-0.5); LYMPH# 0.77 X1000 (1.2-3.4); LYMPH% 3.1 % (20.5-51.1); MCH 25.7 PG (27-31); MCHC 31.8 g/dL (33-37); MCV 80.6 FL (81-99); MONO# 1.12 X1000 (0.11-0.59); MONO% 4.6 % (1.7-9.3); MPV 9.8 FL (7.4-10.4); NEUT# 22.42 X1000 (1.4-6.5); NEUT% 91.4 % (42.2-75.2); PLT 447 X1000 (130-400); RBC 3.82 XMIL (4.7-6.1); RDW 17.5 % (11.5-14.5); WBC 24.52 X1000 (4.8-10.8)
[2019-07-04 07:59] LABS: AGAP 13; ALB/GLOB RATIO 0.7; ALBUMIN 2.3 g/dL (3.5-5.0); ALKALINE PHOSPHATASE 106 U/L (32-122); BUN 10 mg/dL (8-22); CALCIUM 8.2 mg/dL (8.8-10.2); CHLORIDE 99 mmol/L (98-107); COSMO 272; CREATININE 0.8 mg/dL (0.7-1.2); ESTIMATED GFR > 60; GLUCOSE 109 mg/dL (70-104); GOT 23 U/L (10-34); GPT 28 U/L (10-44); POTASSIUM 3.5 mmol/L (3.5-5.1); SODIUM 136 mmol/L (136-145); TCO2 24 mmol/L (25-35); TOTAL BILIRUBIN 0.42 mg/dL (0.20-1.00); TOTAL PROTEIN 5.8 g/dL (6.3-8.3)
[2019-07-04 08:37] LABS: HYPOCHROM 1+; LYMPHS 1 % (21-51); MONO 2 % (1-9); SEGS 97 % (42-75)
[2019-07-04] MEDS: FLOMAX PO SCH (11:00)
[2019-07-04] MEDS: TAPAZOLE PO SCH ×3 (11:00→21:25)
--- NOTE | 2019-07-04 11:44 | PROGRESS NOTE ---
DATE: 07/04/2019 SUBJECTIVE: The patient continues to spike fever. Today is day #3. X-ray showed knee infiltrate. Abdominal pain is under control. OBJECTIVE: Vital Signs: Temperature 102.7, heart rate 126, respiratory rate 17, blood pressure 141/85, O2 saturation 99% on room air. General: This is a chronically ill-appearing, 54-year- old, male, lying in bed in no acute distress. Cardiovascular: S1, S2 heard. No murmurs, gallops, or rubs. Regular rate and rhythm. Respiratory: Minimal coarse breath sounds noted in both pulmonary bases, unchanged in comparing with previous days. The patient is not using any accessory muscles or having work of breathing. Abdomen: Soft, nontender to palpation. Bowel sounds present. No organomegaly. Extremities: No clubbing, cyanosis, or edema. Peripheral pulses present in both legs. Neurological: The patient is alert and oriented x3. Moves all 4 extremities. LABORATORY DATA: White cell count 24.52, hemoglobin 9.8, hematocrit 30.8, platelets 447,000, with normal BMP. ASSESSMENT AND PLAN: 1. Sepsis due to right lower lobe pneumonia and acute cholecystitis. The patient is status post laparoscopic cholecystectomy. The patient, on an x-ray from yesterday, had some new infiltrates. Considering that he is still spiking high fever, I am going to do a CT of the chest, abdomen, and pelvis with contrast and see what it shows. Will continue with current treatment, Zyvox and meropenem, day #2 for both medications. We have ordered blood cultures, but those are negative until today. 2. Pancreatic mass with multiple liver lesions suspicious for metastatic pancreatic cancer. Liver biopsy has been done. From Oncology standpoint, the patient will receive chemotherapy as an outpatient once all his infection resolves. 3. Choledocholithiasis, status post endoscopic retrograde cholangiopancreatography. The patient is stable. 4. Multiple sclerosis. Will continue home medications. 5. Benign prostatic hypertrophy. The patient will continue with tamsulosin. 6. Disposition. At this point, we will await the results of CT of chest, abdomen, and pelvis, and will change our treatment accordingly. Will continue with current antibiotics. Will continue to monitor this patient closely. cc: Tenzin Dempsey MD
--- NOTE | 2019-07-04 13:30 | GASTROENTEROLOGY PROGRESS NOTE ---
DATE: 07/04/2019 SUBJECTIVE: At the time of my visit, patient was drinking contrast for an ordered CT scan. He continues to have fevers up to 102.7 today. His white blood cell count is elevated at 24.52. Liver function tests are normal. He had an ERCP with stone extraction and sphincterotomy on 06/30/2019. OBJECTIVE: Vital Signs: Temperature 99.2 degrees, pulse 98, respirations 16, blood pressure 125/72. General: The patient is awake and alert. He is drinking contrast for an ordered CT scan. LABORATORY DATA: Hematology: WBC 24.52, hemoglobin 9.8, hematocrit 30.8, MCV 80.6, platelets 447,000. Chemistry: Sodium 136, potassium 3.5, chloride 99, CO2 of 24, BUN 10, creatinine 0.8, glucose 109, calcium 8.2, total bilirubin 0.42, AST 23, ALT 28. ASSESSMENT AND PLAN: 1. Pneumonia. The patient is on antibiotics, and they have been changed due to his recent fever and elevated WBC count. 2. Recent acute cholecystitis, status post cholecystectomy, and choledocholithiasis, status post ERCP and sphincterotomy and stone removal. A stent was not placed during the procedure. 3. Pancreatic mass with multiple liver lesions. Pathology showing metastatic adenocarcinoma. Patient is following with Dr. Diamond Callahan. 4. Liver function tests are now normal. Continue current management. Gastrointestinal will currently sign off, but please re-consult as needed. I have discussed this case with Dr. Vo. Dictated by EDWIN Vasquez for Adebayo Vo MD cc: EDWIN Han MD
[2019-07-04] MEDS: PATIENT'S OWN MED PO SCH ×2 (17:12→21:30)
[2019-07-04] MEDS: TYLENOL PO PRN (21:25)
[2019-07-04] MEDS: LOVENOX SUBQ SCH (21:25)
[2019-07-05] MEDS: MERREM 1 GM in NS 50 ML IV SCH ×3 (01:51→20:27)
[2019-07-05] MEDS: ZYVOX 600 MG/D5W 600 MG/300 ML IVPB IV SCH ×2 (05:05→15:58)
[2019-07-05] MEDS: NS 1,000 ML IV SCH ×3 (05:13→15:26)
[2019-07-05] MEDS: TYLENOL PO PRN ×2 (05:20→20:28)
[2019-07-05] MEDS: PEPCID PO SCH (06:18)
[2019-07-05 07:19] LABS: BASO# 0.01 X1000 (0.0-0.2); BASO% 0.1 % (0.0-0.8); EOS# 0.04 X1000 (0.0-0.7); EOS% 0.3 % (0.0-10.0); HEMATOCRIT 26.1 % (42.0-52.0); HEMOGLOBIN 8.4 g/dL (14.0-18.0); IMM GRAN# 0.04 X1000 (0.0-0.04); IMM GRAN% 0.3 % (0.0-0.5); LYMPH# 0.43 X1000 (1.2-3.4); LYMPH% 2.7 % (20.5-51.1); MCH 25.5 PG (27-31); MCHC 32.2 g/dL (33-37); MCV 79.3 FL (81-99); MONO# 0.84 X1000 (0.11-0.59); MONO% 5.3 % (1.7-9.3); MPV 9.2 FL (7.4-10.4); NEUT# 14.41 X1000 (1.4-6.5); NEUT% 91.3 % (42.2-75.2); PLT 392 X1000 (130-400); RBC 3.29 XMIL (4.7-6.1); RDW 16.8 % (11.5-14.5); WBC 15.77 X1000 (4.8-10.8)
[2019-07-05 07:32] LABS: AGAP 12; ALB/GLOB RATIO 0.7; ALBUMIN 1.9 g/dL (3.5-5.0); ALKALINE PHOSPHATASE 93 U/L (32-122); BUN 11 mg/dL (8-22); CALCIUM 7.7 mg/dL (8.8-10.2); CHLORIDE 99 mmol/L (98-107); COSMO 271; CREATININE 0.6 mg/dL (0.7-1.2); ESTIMATED GFR > 60; GLUCOSE 125 mg/dL (70-104); GOT 23 U/L (10-34); GPT 24 U/L (10-44); POTASSIUM 3.1 mmol/L (3.5-5.1); SODIUM 135 mmol/L (136-145); TCO2 24 mmol/L (25-35); TOTAL BILIRUBIN 0.21 mg/dL (0.20-1.00); TOTAL PROTEIN 4.7 g/dL (6.3-8.3)
[2019-07-05] MEDS: TAPAZOLE PO SCH ×3 (10:14→20:27)
[2019-07-05] MEDS: FLOMAX PO SCH (10:14)
[2019-07-05] MEDS: PATIENT'S OWN MED PO SCH (10:41)
--- NOTE | 2019-07-05 13:26 | PROGRESS NOTE ---
DATE: 07/05/2019 SUBJECTIVE: Patient continues to spike fever. Today, he had 100.3 this morning. OBJECTIVE: Vital Signs: Temperature 100.3 degrees, heart rate 94, respiratory 15, blood pressure 132/74. O2 saturation 97% on room air. General: This is a chronically ill-appearing, 54-year- old, male, lying in bed, in no acute distress. Cardiovascular: S1 and S2 heard. No murmurs, gallops, or rubs. Regular rate and rhythm. Respiratory: Minimal coarse breath sounds noted in both pulmonary bases. Basically unchanged compared with previous day but patient is not using any accessory muscles or having work of breathing. Abdomen: Soft, nontender to palpation. Bowel sounds present. No organomegaly. Extremities: No clubbing, cyanosis, or edema. Peripheral pulses present in both legs. Neurological: Patient alert oriented x3. Moves 4 extremities. LABORATORY DATA: White cell count has decreased from 24 down to 15,000. Potassium is a little bit low so at this point, we will continue to monitor. Hypokalemia. We will replete potassium today. ASSESSMENT AND PLAN: 1. Sepsis due to right lower lobe pneumonia and acute cholecystitis. The patient is status post laparoscopic cholecystectomy. Patient is doing fine. For the last 3 days he has been spiking fever. Blood cultures are so far negative. I have ordered a CT of the chest, abdomen and pelvis to see what it shows yesterday afternoon but it is not done yet. I have changed the antibiotics to use Zyvox and meropenem. Today is day #3 for both medications. He spiked fever this morning so we will continue to monitor. 2. Pancreatic mass with multiple liver lesions suspicious for metastatic pancreatic cancer. Liver biopsies done. At this point, Oncology will be providing chemotherapy as an outpatient. 3. Choledocholithiasis status post ERCP, stable. Gastroenterology has signed off. 4. Multiple sclerosis. We will continue home medications. 5. Benign prostatic hypertrophy. We will continue with tamsulosin. 6. Disposition. At this point, we will continue with current antibiotic management. We are still awaiting results of CT of the chest, abdomen and pelvis but has not been from last afternoon. We will see what it shows. cc: Tenzin Dempsey MD
[2019-07-05] MEDS: LOVENOX SUBQ SCH (20:28)
--- NOTE | 2019-07-05 20:33 | Diag Imaging Result Doc PS360 ---
EXAM: CT THORAX/ABD/PELVIS W/CON HISTORY: persistent fever, pna, pancreatic cancer TECHNIQUE: 1. CT chest with intravenous contrast 2. CT abdomen and pelvis with intravenous and oral contrast COMPARISON: 06/27/2019 FINDINGS: Chest: Trace pleural fluid. No cardiomegaly. No aortic aneurysm or dissection. No enlarged lymph nodes. Atelectasis in the lung bases. Possible small infiltrate in the right lower lobe. No consolidation. No bronchiectasis. Mild emphysema. Abdomen and pelvis: There are scattered hepatic metastases and there is a mass in the pancreatic tail. These were present on the prior exam. The gallbladder has been removed. No change in the other organs in the upper abdomen. No bowel obstruction. Moderate amount of free fluid in the pelvis on the current exam. Small amount of fluid about the liver. The urinary bladder is distended and is normal. No abscess. IMPRESSION: Chest: Worsening atelectasis or infiltrates in the right lower lobe Abdomen and pelvis: Known hepatic metastases and pancreatic mass. Small amount of fluid about the liver and in the pelvis on the current exam. This exam was performed using automated exposure control, adjustment of mA or kV according to patient size, and/or use of iterative reconstruction technique. Electronically signed by Bert Whitley 07/05/2019 8:31 PM
[2019-07-06] MEDS: PATIENT'S OWN MED PO SCH ×2 (02:07→10:12)
[2019-07-06] MEDS: ZYVOX 600 MG/D5W 600 MG/300 ML IVPB IV SCH ×2 (05:55→17:04)
[2019-07-06] MEDS: TYLENOL PO PRN ×2 (06:23→20:52)
[2019-07-06] MEDS: PEPCID PO SCH (06:23)
[2019-07-06 08:01] LABS: BASO# 0.01 X1000 (0.0-0.2); BASO% 0.1 % (0.0-0.8); EOS# 0.09 X1000 (0.0-0.7); EOS% 0.7 % (0.0-10.0); HEMATOCRIT 26.2 % (42.0-52.0); HEMOGLOBIN 8.5 g/dL (14.0-18.0); IMM GRAN# 0.05 X1000 (0.0-0.04); IMM GRAN% 0.4 % (0.0-0.5); LYMPH% 2.9 % (20.5-51.1); MCH 25.6 PG (27-31); MCHC 32.4 g/dL (33-37); MCV 78.9 FL (81-99); MONO# 0.81 X1000 (0.11-0.59); MONO% 5.9 % (1.7-9.3); MPV 9.5 FL (7.4-10.4); NEUT# 12.37 X1000 (1.4-6.5); PLT 371 X1000 (130-400); RBC 3.32 XMIL (4.7-6.1); RDW 16.8 % (11.5-14.5); WBC 13.73 X1000 (4.8-10.8)
[2019-07-06 08:10] LABS: AGAP 12; ALB/GLOB RATIO 0.6; ALBUMIN 1.9 g/dL (3.5-5.0); ALKALINE PHOSPHATASE 115 U/L (32-122); BUN 9 mg/dL (8-22); CALCIUM 7.4 mg/dL (8.8-10.2); CHLORIDE 100 mmol/L (98-107); COSMO 272; CREATININE 0.5 mg/dL (0.7-1.2); ESTIMATED GFR > 60; GLUCOSE 121 mg/dL (70-104); GOT 19 U/L (10-34); GPT 20 U/L (10-44); POTASSIUM 3.1 mmol/L (3.5-5.1); SODIUM 136 mmol/L (136-145); TCO2 24 mmol/L (25-35); TOTAL BILIRUBIN 0.32 mg/dL (0.20-1.00); TOTAL PROTEIN 4.9 g/dL (6.3-8.3)
[2019-07-06] MEDS: FLOMAX PO SCH (10:08)
[2019-07-06] MEDS: TAPAZOLE PO SCH ×3 (10:08→20:52)
[2019-07-06] MEDS: MERREM 1 GM in NS 50 ML IV SCH ×2 (10:08→16:29)
[2019-07-06] MEDS: NS 1,000 ML IV SCH (10:12)
[2019-07-06] MEDS ORDERED: POTASSIUM CHLORIDE 60 MEQ in NS 500 ML IV ONE (12:31)
--- NOTE | 2019-07-06 13:34 | PROGRESS NOTE ---
DATE: 07/06/2019 SUBJECTIVE: The patient continues to spike fevers. This morning, it was 102.1. OBJECTIVE: Vital Signs: Temperature 98.4 degrees, heart rate 76, respiratory rate 18, blood pressure 126/74, O2 saturation 97% on room air. General Examination: This is a chronically ill- appearing, 54-year-old, male, lying in bed, in no acute distress. Cardiovascular Examination: S1 and S2 heard. No murmurs, gallops, or rubs. Regular rate and rhythm. Respiratory Examination: Coarse breath sounds noted in both pulmonary bases. This is unchanged in comparing with previous days. Patient is not using any accessory muscles or having work of breathing. Abdomen: Soft, nontender to palpation. Bowel sounds present. No organomegaly. Extremities: No clubbing, cyanosis, or edema. Peripheral pulses present in both legs. Neurological Examination: The patient is alert and oriented x3. Moves 4 extremities. Laboratory Data: White cell count 13.7, hemoglobin 8.5, hematocrit 36.2, platelets 371,000. Potassium 3.1. A CT of the chest, abdomen, and pelvis showed, in the chest, worsening atelectasis or infiltrate in the right lower lobe. Abdomen and pelvis, known hepatic metastasis and pancreatic mass with a small amount of fluid in the liver and in the pelvis on the current exam. ASSESSMENT AND PLAN: 1. Hospital-acquired right lower lobe pneumonia. We will continue with Zyvox and meropenem. His white cell count is trending down, although he continues to spike fever. So far, blood cultures that we reordered are normal. At this point, I am planning to continue with the same medications. Today is day #4 for Zyvox and meropenem. The patient needs to be at least 24 hours free of fever in order to be discharged. 2. Pancreatic mass with multiple liver lesions, suspicious for metastatic pancreatic cancer. At this point, oncology will be seeing this patient as an outpatient. 3. Choledocholithiasis, status post endoscopic retrograde cholangiopancreatography. That condition is stable. 4. Multiple sclerosis. We will continue home medications. 5. Benign prostatic hypertrophy. We will continue with tamsulosin. 6. Disposition. At this point, we will continue with current antibiotics. We will see if this patient continues to have fever today. cc: Tenzin Dempsey MD
[2019-07-06] MEDS: LOVENOX SUBQ SCH (20:52)
[2019-07-07] MEDS: MERREM 1 GM in NS 50 ML IV SCH ×2 (00:08→09:39)
[2019-07-07] MEDS: PATIENT'S OWN MED PO SCH ×2 (00:56→09:40)
[2019-07-07] MEDS: ZYVOX 600 MG/D5W 600 MG/300 ML IVPB IV SCH (06:32)
[2019-07-07] MEDS: PEPCID PO SCH (06:33)
[2019-07-07 07:38] LABS: BASO# 0.01 X1000 (0.0-0.2); BASO% 0.1 % (0.0-0.8); EOS# 0.09 X1000 (0.0-0.7); EOS% 0.6 % (0.0-10.0); HEMATOCRIT 28.9 % (42.0-52.0); HEMOGLOBIN 9.1 g/dL (14.0-18.0); IMM GRAN# 0.06 X1000 (0.0-0.04); IMM GRAN% 0.4 % (0.0-0.5); LYMPH# 0.22 X1000 (1.2-3.4); LYMPH% 1.4 % (20.5-51.1); MCH 24.9 PG (27-31); MCHC 31.5 g/dL (33-37); MONO# 1.01 X1000 (0.11-0.59); MONO% 6.6 % (1.7-9.3); MPV 9.5 FL (7.4-10.4); NEUT# 14.02 X1000 (1.4-6.5); NEUT% 90.9 % (42.2-75.2); PLT 414 X1000 (130-400); RBC 3.66 XMIL (4.7-6.1); RDW 16.9 % (11.5-14.5); WBC 15.41 X1000 (4.8-10.8)
[2019-07-07 07:48] LABS: AGAP 11; ALB/GLOB RATIO 0.7; ALBUMIN 2.3 g/dL (3.5-5.0); ALKALINE PHOSPHATASE 108 U/L (32-122); BUN 10 mg/dL (8-22); CALCIUM 7.8 mg/dL (8.8-10.2); CHLORIDE 98 mmol/L (98-107); COSMO 269; CREATININE 0.7 mg/dL (0.7-1.2); ESTIMATED GFR > 60; GLUCOSE 130 mg/dL (70-104); GOT 18 U/L (10-34); GPT 20 U/L (10-44); POTASSIUM 3.5 mmol/L (3.5-5.1); SODIUM 134 mmol/L (136-145); TCO2 25 mmol/L (25-35); TOTAL BILIRUBIN 0.38 mg/dL (0.20-1.00); TOTAL PROTEIN 5.5 g/dL (6.3-8.3)
[2019-07-07 07:54] LABS: BANDS 4 % (0-1); HYPOCHROM 2+; LYMPHS 2 % (21-51); SEGS 94 % (42-75)
[2019-07-07] MEDS: TAPAZOLE PO SCH (09:39)
[2019-07-07] MEDS: FLOMAX PO SCH (09:39)
[2019-07-07] MEDS: TYLENOL PO PRN (09:43)
[2019-07-07 11:22] VITALS: BP 125/79
[2019-07-07] MEDS: NS 1,000 ML IV SCH (11:25)
--- NOTE | 2019-07-07 17:05 | PROVIDER DOCUMENTATION ---
This chart was entered by Mima Julian Scribe, acting as scribe for Quoc Kirkpatrick MD. HPI-General Adult - General Chief Complaint: Abdominal Pain Stated Complaint: NAUSEA AND VOMITING Time Seen by Provider: 06/26/19 23:35 Source: patient Allergies/Adverse Reactions: Patient Allergies Allergy/AdvReac Type Severity Reaction Status Date / Time No Known Allergies Allergy Verified 06/26/19 23:45 Home Medications: Home Medication List Medication Instructions Recorded Confirmed Last Taken Type Acyclovir [Zovirax] 200 mg PO BID 06/27/19 06/27/19 Unknown History Cholecalciferol (Vitamin D3) 50 mcg PO DAILY 06/27/19 06/27/19 Unknown History [Vitamin D3] Clemastine Fumarate 2 tab PO QHS 06/27/19 06/27/19 Unknown History Methimazole [Tapazole] 1 tab PO TID@0900,1500,2100 06/27/19 06/27/19 Unknown History Ranitidine [Zantac] 150 mg PO DAILY@0700 06/27/19 06/27/19 Unknown History Tamsulosin [Flomax] 0.4 mg PO DAILY 06/27/19 06/27/19 Unknown History Cefuroxime Axetil [Cefuroxime] 500 mg PO BID #20 tab 07/07/19 Unknown Rx Doxycycline 100 mg PO BID #20 tab 07/07/19 Unknown Rx Hydrocodone/APAP 10 mg/325 mg 1 tab PO Q4H PRN PRN #60 tab 07/07/19 Unknown Rx [[place]-10] - History of Present Illness -Gen Adult Nature of Presenting Problems: pt is a 54 yr old male presenting with complaint of nausea/vomiting onset 0800, fever/chills and fatigue onset 2100 tonight. pt hx of MS, chronic weakness/fatigue, pt reports worse than normal tonight. pt denies pain Location of Pain/Injury: reports: generalized (weakness) Pain Radiation: reports: no radiation Quality of Pain: reports: none Severity: reports: moderate Onset/Duration: reports: this morning Timing: reports: still present Context/Activities at Onset: reports: rest Modifying Factors: improves with: nothing Associated Symptoms: reports: fatigue, fever/chills, nausea, vomiting, weakness. denies: back/neck pain, chest pain, diarrhea, dizziness, headaches, muscle aches Similar Symptoms Previously?: No Recently seen or treated by another doctor?: No Review of Systems - Adult - REVIEW OF SYSTEMS - ADULT Constitutional: reports: chills, fever, fatique Eyes: reports: no symptoms reported Ears, Nose, Mouth & Throat: denies: ear pain, sinus problem, throat pain Cardiovascular: denies: chest pain, palpitations, syncope Respiratory: denies: cough, shortness of breath Gastrointestinal: reports: nausea, vomiting. denies: abdominal pain, diarrhea Genitourinary: denies: dysuria, frequency Musculoskeletal: denies: muscle aches Integumentary: reports: no symptoms reported Neurological: denies: dizziness/vertigo, headache/migraines Psychiatric: reports: no symptoms reported Endocrine: reports: no symptoms reported Hematologic/Lymphatic: reports: no symptoms reported Allergic/Immunologic: reports: no symptoms reported All Other Systems: Reviewed and Negative Past History - Adult - PAST MEDICAL HISTORY-ADULT Review of Records: reports: Nursing Assessment Review, Medications Reviewed, Social history reviewed & non-contributory. Major Childhood Illnesses: reports: denies history Cardiovascular: reports: CAD, HTN Respiratory: reports: denies history Gastrointestinal: reports: denies history Obstetrical/Gynecological: reports: denies history Genitourinary: reports: denies history Musculoskeletal: reports: denies history Neurological: reports: Multiple Sclerosis Endocrine/Immune: reports: denies history Other Conditions: reports: denies history - PRIOR SURGERIES/PROCEDURES Surgical/Procedure History: reports: reviewed, not pertinent - PRIOR HOSPITALIZATIONS Prior Hospitalizations: reports: for other non-related - IMMUNIZATION STATUS Childhood Immunizations: See Nurse Assessment Flu Vaccine: See Nurse Assessment - FAMILY HISTORY Family History: reviewed, not pertinent - SOCIAL HISTORY Smoking: cigarettes Substance Use: alcohol Alcohol Use Frequency: every day Living Situation: family Physical Exam-General - PHYSICAL EXAM-ADULT Initial Vital Signs Reviewed: Yes - CONSTITUTIONAL General Appearance: alert, no apparent distress, other (fatigued) - EYES Eyes: PERRL/EOMI - HEAD, EARS, NOSE, MOUTH & THROAT HENMT: normocephalic/atraumatic, moist mucous membranes - NECK Neck: non-tender, full range of motion, supple, normal inspection - RESPIRATORY Respiratory: lungs clear, normal breath sounds - CARDIOVASCULAR Cardiovascular: normal peripheral pulses, no edema, tachycardia - GASTROINTESTINAL (ABDOMEN) Abdominal Exam: non tender, soft - LYMPHATIC Lymphatic: no adenopathy - MUSCULOSKELETAL Back Exam: normal inspection Extremity: normal range of motion, non-tender, normal inspection - SKIN Integumentary: normal color, normal turgor, warm/dry - PSYCHIATRIC Psych/Mental Status: normal mood/affect Progress - PLAN OF CARE/RESULTS Progress/Plan/Lab Results: Vital Signs - 8 hr 06/26/19 23:31 Temperature 102.7 F H Pulse Rate 110 H Respiratory Rate 23 Blood Pressure 151/86 O2 Sat by Pulse Oximetry 98 Result Diagrams: 07/07/19 07:10 07/07/19 07:10 - EKG 1 Time of EKG reading by physician:: 23:31 EKG Read and Signed by:: Quoc Kirkpatrick EKG Interpretation (*Must complete 3 of following elements*): Abnormal (possible anterior infarct-age undetermined) Rate: 103 Rhythm: sinus tchycardia Frontier: normal QRS: normal SD Interval: normal ST Wave: normal Departure - Departure Date of Disposition Decision: 06/27/19 Time of Disposition Decision: 04:10 DIAGNOSIS: N&V (nausea and vomiting) Qualifiers: Vomiting type: unspecified Vomiting Intractability: non-intractable Qualified Code(s): R11.2 - Nausea with vomiting, unspecified Disposition: ADMITTED INPATIENT 09 Certified Medical Emergency: Emergent Condition: Stable - Critical Care Note This patient required my direct & personal management of CC.: No Attestation - Physician/ CYNDEE Attestation Patient care was provided by Advanced Practice Provider:: No The physician spent face to face time with patient:: Yes Advanced Practice Provider documentation review:: Supervising physician onsite and consulted in the evaluation and care of this patient. The physician did have a face to face encounter with the patient. This chart was documented by the indicated scribe, (Mima Julian Scribe) and accurately reflects the services I performed and decisions made by me, Quoc Kirkpatrick MD, as attested by the provider's signature.
--- NOTE | 2019-07-09 17:28 | DISCHARGE SUMMARY ---
ADMISSION DATE: 06/27/2019 DISCHARGE DATE: 07/07/2019 DISCHARGE DIAGNOSES: 1. Pancreatic mass with multiple liver lesions suspicious for metastatic pancreatic cancer. 2. Multiple sclerosis. 3. Sepsis due to right lower lobe pneumonia and acute versus chronic cholecystitis. 4. Hypertension. 5. Chronic pain. 6. Tobacco abuse. CONSULTATIONS: 1. Dr. Yon Yin from General Surgery. 2. Dr. Diamond Callahan from Hematology/Oncology. PROCEDURES: 1. Chest x-ray done on admission showed negative exam. 2. CT of the abdomen and pelvis showed a suspicious mass in the pancreatic tail with numerous hepatic metastases, most likely metastatic pancreatic cancer. 3. Abdominal ultrasound showed numerous stones in the gallbladder with numerous masses in the liver. 4. Liver biopsy CT was successfully perform on June 29, 2019. 5. Laparoscopic cholecystectomy with operative cholangiogram and biopsy of the right lobe of the liver performed by Dr. Yon Yin on June 30, 2019. 6. Liver biopsy showed metastatic adenocarcinoma consistent with pancreaticobiliary primary. 7. ERCP performed by Dr. Vo from showed common bile duct stones. 8. Operative cholangiogram showed numerous obstructing stones in the common bile back. 9. CT of the chest, abdomen, and pelvis showed worsening atelectasis or infiltrates in the right lower lobe and in the abdomen and pelvis known hepatic metastasis and pancreatic mass. HOSPITAL COURSE: This is a 54-year-old male with a past medical history of hypertension, multiple sclerosis, chronic neck and back pain with recent thyroid issues who presented to the emergency department complaining of nausea and vomiting for about a week and clear productive cough. Workup in the ER revealed that this patient was febrile at 102.[address] of the abdomen and pelvis showed results as above, so the patient was admitted to the hospital for that reason. Dr. Yin from General Surgery performed a laparoscopic cholecystectomy and also because the cholangiogram revealed common bile duct stones, ERCP was performed as well. The biopsy of the liver is available at time of dictation with results as above. During the last 3 days of his hospitalization he started to spike a fever. CT of the chest, abdomen, and pelvis with results as above. Even though he was still spiking a fever, he preferred to be sent home with oral antibiotics and see if he can improve. The patient was very insistent so we decided to provide the antibiotics and he is supposed to see Dr. Callahan in the office for reports from pathology. At this point, the patient is being discharged in stable condition. DISCHARGE PHYSICAL EXAMINATION: Vital signs: Temperature 98.9 degrees, heart rate 88, respiratory rate 18, blood pressure 125/79, O2 saturation 95% on room air. GENERAL EXAMINATION: This is a chronically ill-appearing, 54-year-old male, lying in bed, in no acute distress. Cardiovascular: S1, S2 heard. No murmurs, gallops, or rubs. Regular rate and rhythm. Respiratory: Clear bilaterally to auscultation. No work of breathing or using accessory muscles. Abdomen: Soft. Nontender to palpation. Bowel sounds present. No organomegaly. Extremities: No clubbing, cyanosis, or edema. Peripheral pulses present in both legs. Neurological: The patient is alert and oriented x3. Moves 4 extremities. DISCHARGE DISPOSITION: Home to self-care. FOLLOW UP: Follow up with Dr. Diamond Callahan in 1 to 2 weeks. DISCHARGE MEDICATIONS: 1. Cefuroxime 500 mg 1 tablet p.o. b.i.d. for 10 days. 2. Doxycycline 100 mg 1 tablet p.o. b.i.d. for 10 days. 3. Hydrocodone acetaminophen 10 mg 1 tablet p.o. every 4 hours as needed for pain. 4. Methimazole 1 tablet p.o. 3 times per day. 5. Cholecalciferol vitamin D3 50 mcg 1 tablet p.o. daily. 6. Tamsulosin 0.4 mg 1 tablet p.o. daily. 7. Acyclovir 200 mg 1 tablet p.o. twice daily. 8. Zantac 150 mg 1 tablet p.o. daily. TIME SPENT: Time discharging this patient, 40 minutes. cc: Tenzin Dempsey MD
== END 2019-07-07 17:35 | disposition home health service (06) | DRG 853 ==
LOC: P.ED 23:31 → P.MEDSURG 06-27 04:40 → SUATTDRO 06-27 04:40 → 3N 06-27 15:26
PROVIDERS: ATTEND Internal Medicine
PROC: EN.ERCP (2019-06-30 17:00)